=== PATIENT | female | born 1985 | race Caucasian/White ===

== ENCOUNTER 2019-10-27 11:20 | Outpatient (CLI) | payer OTHER, SELFPAY ==
--- NOTE | ~2019-10-27 | MMUS_ITS ---
EXAMINATION: MM diagnostic tierney BI w poncho, US breast BI limited HISTORY: Family history of breast cancer in her mother at age 30 TECHNIQUE: Craniocaudal, mediolateral, and mediolateral oblique 3-D tomosynthesis images of the breas ts were performed and synthetic 2-D images were generated. Spot compression views are also obtained. CAD analysis was submitted and interpreted. High resolution limited bilateral breast ultrasound was p erformed. COMPARISON: None, baseline BREAST PARENCHYMAL COMPOSITION: There are scattered areas of fibroglandular density. FINDINGS: MAMMOGRAPHIC FINDINGS: Right breast: There is focal asymmetry in the posterior third of the upper outer quadrant of the yosi st approximately 10 cm from the nipple. No suspicious calcification is identified. Left breast: An asymmetry is present in the middle third of the central breast. There is no suspiciou s calcification or architectural distortion. ULTRASOUND: No suspicious sonographic correlate is identified for the mammographic finding in either breast. Dens e breast tissue is seen bilaterally. There is an 8 mm cyst in the left breast at the 2:00 location 7 cm from the nipple. IMPRESSION: 1. No mammographic or sonographic evidence of malignancy. 2. Recommend routine screening mammography in one year given patient's family history of breast cance r in her mother at age 30. BI-RADS Category 2: Benign finding(s). Reviewed, dictated and finalized at location A. IMPRESSION: 1. No mammographic or sonographic evidence of malignancy. 2. Recommend routine screening mammography in one year given patient's family h istory of breast cancer in her mother at age 30. BI-RADS Category 2: Benign finding(s).
== END 2019-10-27 11:21 | disposition home or self-care (01) ==
LOC: ANHIMG 11:21
PROVIDERS: PCP Family Medicine; Visit Provider Obstetrics & Gynecology
DX: N60.19 Diffuse cystic mastopathy of unspecified breast (principal); Z80.3 Family history of malignant neoplasm of breast
CPT/HCPCS: 76642; 77062; 77066; G0279

== ENCOUNTER 2020-05-23 11:08 | Outpatient (CLI) | payer OTHER, SELFPAY ==
--- NOTE | ~2020-05-23 | US_ITS ---
EXAMINATION: US breast RT limited HISTORY: Right nipple discharge TECHNIQUE: Limited ultrasound was performed of the subareolar aspect of the right breast. FINDINGS: Ducts in the subareolar aspect of the breasts contain a small amount of fluid. No intraduct al mass is identified. IMPRESSION: No specific sonographic correlate is identified for the reported nipple discharge. Further evaluation at this time should be based on clinical assessment. Continued follow-up physical examination is rec ommended. BI-RADS Category 1: Negative Reviewed, dictated and finalized at location A. IMPRESSION: No specific sonographic correlate is identified for the reported nipple dischar ge. Further evaluation at this time should be based on clinical assessment. Con tinued follow-up physical examination is recommended. BI-RADS Category 1: Negative
== END 2020-05-23 11:09 | disposition home or self-care (01) ==
LOC: ANHIMG 11:14
PROVIDERS: PCP Family Medicine; Visit Provider Obstetrics & Gynecology
DX: N64.52 Nipple discharge (principal)
CPT/HCPCS: 76642

== ENCOUNTER 2020-06-13 11:03 | Outpatient (CLI) | payer OTHER, SELFPAY ==
--- NOTE | ~2020-06-13 | US_ITS ---
EXAMINATION: US pelvic complete w TV EXAM DATE: 06/13/2020 11:54 INDICATION: R10.2 - Pelvic and perineal pain. TECHNIQUE: Pelvic transabdominal and transvaginal sonogram was performed. There are multiple graysca le and Doppler images available for interpretation. There is no prior study for comparison. FINDINGS: Uterus measures 8.1 x 3.3 x 4.3 cm, with trace fluid in the endometrial canal. Endometrial stripe measures 5 mm, within normal limits. There is no free pelvic fluid. Right adnexa: The ovary measures 7.1 x 6.7 x 7.2 cm, with an anechoic simple cystic region taking up most of this volume at 6.0 x 6.1 x 6.5 cm. Ovarian vascular flow confirmed. Left adnexa: The ovary measures 3.7 x 2.0 x 2.1 cm and is morphologically normal. Ovarian vascular fl ow confirmed. IMPRESSION: Large right adnexal cystic lesion, could be large physiologic cyst given no complexity bu t differential diagnosis includes hemorrhagic cyst, endometrioma or cystic ovarian neoplasm. No torsi on. Recommend 6 week follow-up pelvic sonogram. Reviewed, dictated and finalized at location A. Y LAB TECHNICIAN IMPRESSION: Large right adnexal cystic lesion, could be large physiologic cyst given no complexity but differential diagnosis includes hemorrhagic cyst, endom etrioma or cystic ovarian neoplasm. No torsion. Recommend 6 week follow-up pelv ic sonogram.
== END 2020-06-13 11:04 | disposition home or self-care (01) ==
PROVIDERS: PCP Family Medicine; Visit Provider Obstetrics & Gynecology
DX: R10.2 Pelvic and perineal pain (principal); N83.201 Unspecified ovarian cyst, right side
CPT/HCPCS: 76830; 76856

== ENCOUNTER 2021-05-10 07:41 | Outpatient (RCR) | payer OTHER, SELFPAY ==
[2021-05-10] MEDS: ACETAMINOPHEN 325 MG TABLET 650 MG PO (11:12)
[2021-05-10] MEDS: diphenhydrAMINE HCl CAP 25 MG CAPSULE PO (11:13)
[2021-05-10] MEDS: FAMOTIDINE 20 MG TABLET PO (11:13)
[2021-05-10 11:21] VITALS: BP 135/87; PULSE 78; RESP 18; TEMP 37; O2SAT 100
[2021-05-10 12:39] VITALS: BP 120/61
--- NOTE | 2021-05-13 12:53 | PC.NURSE ---
Patient states she felt much better the day after her monoclonal antibody infusion.
== END 2021-05-10 14:26 | disposition home or self-care (01) ==
LOC: AMCINF 07:41
PROVIDERS: PCP Internal Medicine; Referring Provider Nurse Practitioner Family; Visit Provider Internal Medicine Hematology & Oncology
DX: Z23 Encounter for immunization (principal); U07.1 COVID-19
CPT/HCPCS: A9270; J7050; M0243; Q0243

== ENCOUNTER → 2021-09-16 00:50 | Outpatient (CLI) | payer OTHER, SELFPAY ==
[2021-09-16 11:41] LABS: SARS-CoV-2 RNA PCR Negative
== END ==
PROVIDERS: PCP Internal Medicine; Visit Provider Surgery Plastic and Reconstructive Surgery
DX: Z01.812 Encounter for preprocedural laboratory examination (principal); Z20.822 Contact with and (suspected) exposure to COVID-19
CPT/HCPCS: C9803; U0003; U0005

== ENCOUNTER 2021-09-16 09:22 | Outpatient (CLI) | payer OTHER, SELFPAY ==
--- NOTE | 2021-09-16 09:25 | ECG_ITS ---
Measurements Intervals [place] Rate: 94 P: 66 [place]: 138 QRS: 71 QRSD: 85 T: 56 QT: 343 QTc: 431 Interpretive Statements SINUS RHYTHM WITH SINUS ARRHYTHMIA LOW QRS VOLTAGE IN PRECORDIAL LEADS BASELINE ARTIFACT- I, II, AVR, AVL, AVF, V1 BORDERLINE ECG Electronically Signed On 09-16-2021 13:04:16 KRAFT DIGESTER OPERATOR by Sukumar Sherman D.O.
[2021-09-16 09:52] LABS: Hematocrit 39.1 % (37.0-47.0); Hemoglobin 13.5 g/dL (12.0-15.0)
== END 2021-09-16 09:23 | disposition home or self-care (01) ==
LOC: ANHSURGERY 09:25
PROVIDERS: Anesthesiology; PCP Internal Medicine; Visit Provider Surgery Plastic and Reconstructive Surgery
DX: Z41.1 Encounter for cosmetic surgery (principal); R94.31 Abnormal electrocardiogram [ECG] [EKG]
CPT/HCPCS: 36415; 85014; 85018; 93005

== ENCOUNTER 2021-09-19 | Day surgery (SDC) | payer OTHER, SELFPAY ==
[2021-09-11 13:06] VITALS: BMI 24.7
--- NOTE | 2021-09-11 13:27 | PC.NURSE ---
Report to the Outpatient Waiting Room, entrance under the green pavilion located off [facility], at time 6:00 on date 09/19/21. OR Time: 7:30. - You and your visitor will be asked a series of questions to screen for COVID 19 for your protection. - A mask is required within the hospital. One visitor will be allowed to accompany the patient into the hospital. Patients visitor will be instructed to remain with patient at all times or leave the building. We will allow the visitor to come back to the postoperative area when patient is ready. Preoperative COVID Testing Requirements: COVID TEST 09/16 AT 9:30 No COVID Test needed if: (proof is required; if not received patient will have Rapid Test prior to entry) - Patient has received COVID Vaccine at least 14 days prior to procedure date or - Patient has positive COVID test result within last 90 days of surgery date. COVID Test needed if above criteria is not met If not COVID vaccinated a COVID test must be conducted within 72 hours of surgery and patient is asked to isolate self from time of testing until procedure. You will go to the [employer] [facility] for your COVID testing. The [employer] [facility] site is located at the corner of [address] [facility]. You will only be called if COVID results are positive and your surgeon may reschedule your elective surgery date. Patients may have clear liquids (water, carbonated beverages, clear teas, apple juice) until 3 hours prior to surgery (4:30) with a maximum of 20 ounces. - No food from midnight until time of surgery Take the following medications with a SIP of water the morning of surgery: XANAX & TRAMADOL (IF NEEDED) Medications to discontinue per physician: VITAMINS/SUPPLEMENTS Date to take last dose: 09/15/21 Please no make-up, nail [place], hairspray, perfume, deodorant, or body powder the day of surgery. No jewelry (including any body piercings) or valuables the day of surgery, leave them at home. Please take a shower or bath the night before, or the morning of, surgery with an antibacterial soap. Wear comfortable, loose fitting clothing. - Jewelry must be removed prior to entering the operating room. Rings and piercings that are not removed may be cut off. - The hospital will not accept responsibility for valuables. - Please leave all valuables, including medications, at home the day of surgery. If you are going home after surgery, a licensed flatbed company driver must drive you home. - NO public transportation without another adult. - We recommend that an adult stay with you for 24 hours following discharge. - We also recommend that you do not drive, make important decision, drink alcoholic beverages, or take any drugs that were not prescribed by your health care provider for at least 24 hours after your discharge time. Follow any additional instructions given to you from your surgeon. Telephone instructions given to SUPA GARAY and asked if any additional questions and then verbalized understanding. Patient advised to call surgeon office or pre surgery nurse liaison [phone] if any additional questions.
--- NOTE | 2021-09-18 13:38 | WPDANESEPPF ---
Anes - Initial Pre Proc Eval Procedure: Operation Date: 09/19/21 07:30 Proposed Procedures p Abdominoplasty - Chris Pearce MD s Bilateral Mastopexy with Galaflex - Chris Pearce MD Date/Time: 09/18/21 13:38 Surgeon: Chris Pearce MD Pre Op Diagnosis: Skin Laxity, Bilateral Breast Ptosis Patient Data Age: 35 Gender: F Height: 1.6 m Weight: 63.5 kg Allergies Allergy/AdvReac Type Severity Reaction Status Date / Time Penicillins Allergy Mild RASH Verified 09/11/21 13:03 CHILD amoxicillin Allergy Unknown Rash Verified 09/11/21 13:03 cinnamon AdvReac Unknown Itching Verified 09/11/21 13:03 Home Medications Medication Instructions Recorded Confirmed Type linaclotide 145 mcg capsule 145 mcg PO DAILY PRN 09/22/19 09/11/21 History alprazolam [Xanax] 1 mg PO HS PRN 05/10/21 09/11/21 History tramadol 50 mg PO Q6H PRN 05/10/21 09/11/21 History zolpidem [Ambien] 5 mg PO HS PRN 05/10/21 09/11/21 History ondansetron 4 mg disintegrating 4 mg PO Q8H #21 tablet 09/04/21 09/11/21 Rx tablet oxycodone-acetaminophen 5 mg-325 1 tablet PO Q6H PRN #30 tablet 09/05/21 09/11/21 Rx mg tablet dextroamphetamine-amphetamine 10 mg PO DAILY 09/11/21 09/11/21 History multivitamin 1 tablet PO DAILY 09/11/21 09/11/21 History omega-3 fatty acids-vitamin E 1 cap PO DAILY 09/11/21 09/11/21 History [Fish Oil] Patient hx anesthesia problems: none Family hx anesthesia problems: none Results Review: All pre-operative results and documents have been reviewed as part of the pre-operative evaluation. [facility] Past Medical History Medical History Congenital hip dysplasia Prudence-Danlos syndrome Gallstones Sacroiliac joint disease Vaginal delivery x 2 Surgical History Surgical History History of endometrial ablation History of tubal ligation S/P cholecystectomy Family History Family History Father Hypertension Mother Hypertension Family history of malignant neoplasm of breast in first degree relative Grandparent Family history of elevated blood lipids Carcinoma of colon Family history of coronary artery disease Diabetes mellitus Other Family history of allergic disorder Social History Social History Smoking packs per day: 0.5 Smoking cigarettes per day: 10.0 Years smoked: 17 Smoking pack-years: 8.50 Smoking status: Never smoker Tobacco type: cigarettes and e-cigarettes/vaping Second hand tobacco smoke exposure: No Smoking end date: 07/27/11 Alcohol intake: current Alcohol use details: RARE Substance use: current Substance use type: marijuana Living arrangements: with family Spiritual care concerns: No Anes - Eval Final PreProcedure Day of Procedure 09/18/21 13:38 Patient weight: normal Heart: regular rate and rhythm Lungs: clear to auscultation Airway: Mallampati scale class II Neurological: alert and oriented Last oral intake: >/= 8 hours ASA classification: II Emergent: no Anesthetic plan: proceed Anesthesia type and monitoring: general ETT and standard monitoring Results Review: All pre-operative results and documents have been reviewed as part of the pre-operative evaluation. Informed Consent: The patient's anesthetic plan and its attendant risks and benefits were discussed with the patient/family/POA. Questions were solicited and answers provided to the satisfaction of the patient/family/POA.
[2021-09-19] VITALS (10 sets, daily range): BP systolic 96–135; BP diastolic 52–89; PULSE 76–108; RESP 12–20; TEMP 36.6–37.5; O2SAT 96–100
[2021-09-19] MEDS: LACTATED RINGERS 1,000 ML 30 ML IV CONT ×2 (06:50→12:47)
[2021-09-19] MEDS: TRANEXAMIC ACID 1,000MG/ISO100 1,000 MG/100 ML BAG 200 MG IVPB (06:55)
[2021-09-19 07:13] LABS: Urine Cotinine NEGATIVE
--- NOTE | 2021-09-19 07:27 | WPDHPUPDATE1 ---
History and Physical Update Update Date/Time: 09/19/21 07:27 History and Physical has been reviewed, including an updated exam of the patient. There are NO changes in the patient's condition. Risks, benefits, and alternatives have been discussed and questions answered. Patient agrees to proceed with procedure.
--- NOTE | 2021-09-19 07:27 | W.PM.PROC2 ---
Procedure Note - Detailed Date of Procedure 09/19/21 Pre-op Diagnosis Skin Laxity, Bilateral Breast Ptosis Post-op Diagnosis same Procedure Performed 1. Bilateral mastopexy with Galaflex 2. Progressive tension abdominoplasty Surgeon Chris Pearce MD Anesthesia general Findings Inverted T, superior medial pedicle mastopexy with autoaugmentation Abdominal tissue removed: 1194.6 grams Galaflex REF# [id number] Description of Procedure They are here today for the above. Previously and again today the risks, benefits, alternatives were discussed in extensive detail. I wanted them to be very realistic about the risks involved as well as expectations. We discussed aftercare and what to monitor for. I was very upfront about the risks of wound breakdown leading to loss of skin, open wounds, and need for additional procedures with permanent abdominal deformity. We discussed DVT/PE risks and management. Made sure answered all of their questions to their satisfaction today and consent was obtained. They were marked in the preoperative holding area with their verification. The patient was taken to the operating room placed supine on the operating table. Anesthesia was provided by anesthesiology. A Altamirano catheter was started. They were prepped and draped in a standard sterile fashion. A surgical time-out was taken. Breast Stab incisions were made night and infiltrated with a small volume of tumescent solution. Tailor tacked the breast into position placed her in a sitting position to verify markings. Markings were based on preoperative planning, intraoperative observation and measurements which were all in full agreement. I marked out the nipple-areolar complex at 42 mm. She is placed supine. I de-epithelialized the superior medial pedicle. I then de-epithelialized the inferior portion of the breast. Incisions were made along the planned incision lines and I elevated the breast in order to create an auto augmentation flap. Once this was completed I copiously irrigated with saline solution and verified strict hemostasis. Auto add mentation flap was sutured to the chest wall using 2-0 PDS. On the back table the Galaflex had been soaking on Betadine solution. I trimmed as necessary and sutured to provide inferior pole support bilateral with 2-0 Vicryl. I then closed along the IMF with 2-0 Stratafix as well as 2-0 PDS along the vertical. Around the areola I used 3-0 strata fix as well as along the IMF. I used 3-0 Monocryl along the vertical. Final closure was running subcuticular 4-0 Monocryl and Steri-Strips. Abdomen I placed the patient in a flexed position to verify the upper and lower markings would reach. I then placed supine. A thorough abdominal examination was completed. Stab incisions were made and tumescent solution infiltrated. A liposuction basket cannula was utilized to provide discontinuous undermining. A 10 blade was used to make the upper incision. I continued dissection down to the level of fascia. Elevated just what was necessary for repair of the diastasis. I then again flexed the bed to verify the upper skin flap would reach the lower markings without tension. Once verified I placed her supine once again and a 10 blade used to make the lower incision. I elevated up to level the umbilicus and left the umbilicus intact on a well-vascularized stalk. The intervening tissue was removed. A 2 mm blunt cannula with 0.5% bupivicaine was injected deep to the fascia bilaterally. I plicated the diastasis recti using 0 PDO stratafix barbed suture. This was in 2 separate layers using 2 separate sutures as well. I repaired around the umbilicus leaving plenty of room for well-vascularized stalk of the umbilicus with 2-0 PDS. I also repaired lateral to the rectus using two layers of 0 PDO stratafix. The patient was flexed and starting from superior to inferior began plication using 2-0 Vicryl to obliterat
[2021-09-19] MEDS: ceFAZolin 2 GM/D5W 50 ML 2 GM/50 ML BAG IVPB (07:36)
[2021-09-19] MEDS: LACTATED RINGERS IRRIG 1,000 ML, LIDOCAINE HCL 1% LOCAL INJ 50 ML, EPINEPHrine HCL INJ ... INFILTRATE (08:11)
--- NOTE | 2021-09-19 09:20 | SUR.OPER ---
GalaFLEX Scaffold lot [id number], Exp 2023-04-25, REF [id number]. Soaked in pharmacy antibiotic solution prior to bilateral breast insertion on sterile field.See [facility] for antibiotic mix/Bottle 1000ml lot [id number], exp [id number], ARLINE FLETCHER [facility] 3881-1148-47.
[2021-09-19] MEDS: BUPIVACAINE/EPINEPHRINE 0.5% 30 ML VIAL 60 ML INFILTRATE (10:47)
--- NOTE | 2021-09-19 10:48 | SUR.OPER ---
patients positioning maintained.
[2021-09-19] MEDS: ceFAZolin SODIUM 1 GM VIAL IV PUSH (11:32)
--- NOTE | 2021-09-19 11:43 | SUR.OPER ---
tumescent 276ml bilateral breasts. abdomen 626ml.
[2021-09-19] MEDS: fentaNYL CITRATE INJ (*CRX) 100 MCG/2 ML VIAL 25 MCG IV PUSH ×6 (12:56→13:53)
[2021-09-19] MEDS: ONDANSETRON INJ 4 MG/2 ML VIAL IV PUSH (13:23)
[2021-09-19] MEDS: LACTATED RINGERS 1,000 ML 125 ML IV CONT (14:25)
[2021-09-19] MEDS: MORPHINE SULFATE (*CRX) 2 MG/ML INJ IV PUSH ×3 (14:44→20:50)
[2021-09-19] MEDS: ALPRAZolam (*CRX) 0.5 MG TABLET 1 MG PO (15:28)
[2021-09-19] MEDS: carisoprodoL (*CRX) 350 MG TABLET PO ×2 (15:28→21:36)
[2021-09-19] MEDS: oxyCODONE/ACETAMINOPHEN (*CRX) 5-325 MG TABLET PO ×2 (16:38→22:52)
[2021-09-19] MEDS: SIMETHICONE 80 MG TAB.CHEW PO ×4 (16:38→22:52)
[2021-09-19] MEDS: ENOXAPARIN 40 MG/0.4 ML SYRINGE SUB-Q (18:39)
[2021-09-19] MEDS: IBUPROFEN 600 MG TABLET PO (18:46)
[2021-09-20] MEDS: MORPHINE SULFATE (*CRX) 2 MG/ML INJ IV PUSH ×2 (00:28→02:31)
[2021-09-20] MEDS: IBUPROFEN 600 MG TABLET PO ×2 (02:20→10:36)
[2021-09-20] MEDS: SIMETHICONE 80 MG TAB.CHEW PO ×3 (02:20→08:59)
[2021-09-20 03:30] VITALS: BP 96/58; PULSE 97; RESP 16; TEMP 37.1; O2SAT 98
[2021-09-20] MEDS: carisoprodoL (*CRX) 350 MG TABLET PO ×2 (03:41→08:58)
[2021-09-20] MEDS: oxyCODONE/ACETAMINOPHEN (*CRX) 5-325 MG TABLET PO ×2 (04:52→10:36)
[2021-09-20 07:15] VITALS: BP 84/53; PULSE 104; RESP 16; TEMP 37.2; O2SAT 97
--- NOTE | 2021-09-20 07:24 | WPDHPUPDATE1 ---
History and Physical Update Update Date/Time: 09/20/21 07:24 History and Physical has been reviewed, including an updated exam of the patient. There are NO changes in the patient's condition. Risks, benefits, and alternatives have been discussed and questions answered. Patient agrees to proceed with procedure.
--- NOTE | 2021-09-20 07:49 | WPDPN ---
Progress Note: A&P Assessment and Plan (1) Breast ptosis: Code(s): N64.81 - Ptosis of breast Status: Acute Assessment and Plan: Doing well after bilateral mastopexy with galaflex and progressive tension abdominoplasty. Will discharge home. F/U. She is going to monitor for BM and keep us updated. Today we had a lengthy discussion about care. Activity limiations. What to monitor for. She will call with any questions or concerns. For SOB / Chest pain / Medical emergency proceed ER / dial 911. (2) Skin laxity: Code(s): L57.4 - Cutis laxa senilis Status: Acute (3) Prudence-Danlos syndrome: Code(s): Q79.60 - Prudence-Danlos syndrome, unspecified Status: Acute (4) Chronic constipation: Code(s): K59.09 - Other constipation Status: Acute Subjective Date/time seen: 09/20/21 07:15 Doing very well. Pain control much improved. No f/c. No n/v. No CP / SOB. She has chronic constipation. No BM last couple days. Review of Systems Review of Systems: All systems reviewed & are unremarkable except as noted in HPI and below Exam Narrative: A&O NOD Resp unlabored Bilateral breast healing well. No signs of infection. No heomataom. No seroma. Good color / cap refill. Abdomen healing well. No signs of infection. No heomataom. No seroma. Good color / cap refill. No calf tenderness. Negative Homann's. Objective Data Vital Signs Vital Signs: Vital Signs - 24 hr 09/19/21 12:55 09/19/21 13:10 09/19/21 13:25 Temperature 36.6 C Pulse Rate 106 H 106 H 99 Respiratory Rate 12 20 12 Blood Pressure 123/75 117/81 115/80 Pulse Oximetry 100 100 96 09/19/21 13:40 09/19/21 13:55 09/19/21 14:20 Temperature 36.8 C Pulse Rate 100 108 H 107 H Respiratory Rate 12 20 18 Blood Pressure 132/83 135/83 134/89 Pulse Oximetry 96 100 99 09/19/21 16:38 09/19/21 19:00 09/19/21 23:00 Temperature 37.5 C 37.3 C Pulse Rate 76 98 97 Respiratory Rate 16 16 16 Blood Pressure 117/69 111/68 96/52 L Pulse Oximetry 98 98 98 09/20/21 03:30 Temperature 37.1 C Pulse Rate 97 Respiratory Rate 16 Blood Pressure 96/58 L Pulse Oximetry 98 Intake/Output Intake/Output: Intake & Output 09/17/21 09/18/21 09/19/21 09/20/21 23:59 23:59 23:59 23:59 Intake Total 2850 Output Total 2100 550 Balance 750 -550 Meds/Results Medications: Active Medications Generic Name Dose Route Start Last Admin Trade Name Freq PRN Reason Stop Dose Admin Alprazolam 1 mg 09/19/21 15:24 09/19/21 15:28 Alprazolam (*Crx) 0.5 Mg Tablet PO 1 mg TID PRN Administration Anxiety Carisoprodol 350 mg 09/19/21 18:00 09/20/21 03:41 Carisoprodol (*Crx) 350 Mg Tablet PO 350 mg Q6HR BEVERLEY Administration Docusate Sodium 100 mg 09/19/21 21:00 09/19/21 21:23 Docusate Sodium 100 Mg Capsule PO Not Given Q12HR BEVERLEY Enoxaparin Sodium 40 mg 09/19/21 19:00 09/19/21 18:39 Enoxaparin 40 Mg/0.4 Ml Syringe SUB-Q 40 mg DAILY BEVERLEY Administration Lactated Ringer's 1,000 mls @ 125 mls/hr 09/19/21 12:35 09/20/21 05:03 Lr - Lactated Ringers Iv IV CONT Not Given .Q8H BEVERLEY Ibuprofen 600 mg 09/19/21 16:11 09/20/21 02:20 Ibuprofen 600 Mg Tablet PO 600 mg Q8H PRN Administration Cramping Linaclotide 145 mcg 09/19/21 14:13 Linaclotide 145 Mcg Capsule PO DAILY PRN Constipation Morphine Sulfate 2 mg 09/19/21 12:31 09/20/21 02:31 Morphine Sulfate (*Crx) 2 Mg/Ml Inj IV PUSH 2 mg Q2H PRN Administration Pain Ondansetron HCl 4 mg 09/19/21 12:31 Ondansetron Inj 4 Mg/2 Ml Vial IV PUSH Q6H PRN Nausea Oxycodone/Acetaminophen 1 - 2 tablet 09/19/21 12:31 09/20/21 04:52 Oxycodone/Acetaminophen (*Crx) 5-325 Mg Tablet PO 2 tablet Q6H PRN Administration Pain Simethicone 80 mg 09/19/21 16:09 09/20/21 04:52 Simethicone 80 Mg Tab.Chew PO 80 mg Q2HR PRN Administration Gas Discomfort
--- NOTE | 2021-09-20 07:53 | PM.DS ---
DS: Admitting Diagnosis Discharge Date 09/20/2021 Admitting Diagnosis Breast ptosis Skin laxity Chronic constipation DS: Discharge Diagnosis Discharge Diagnosis (1) Breast ptosis: Code(s): N64.81 - Ptosis of breast Status: Acute (2) Skin laxity: Code(s): L57.4 - Cutis laxa senilis Status: Acute (3) Chronic constipation: Code(s): K59.09 - Other constipation Status: Acute (4) Prudence-Danlos syndrome: Code(s): Q79.60 - Prudence-Danlos syndrome, unspecified Status: Acute DS: Summary Hospital Course Hospital Course: Doing well after bilateral mastopexy with galaflex and progressive tension abdominoplasty. Will discharge home. F/U. She is going to monitor for BM and keep us updated. Time Spent with Patient Time attestation: Total time spent providing and/or coordinating discharge services: Exam Narrative: A&O NOD Resp unlabored Bilateral breast healing well. No signs of infection. No heomataom. No seroma. Good color / cap refill. Abdomen healing well. No signs of infection. No heomataom. No seroma. Good color / cap refill. No calf tenderness. Negative Homann's. Discharge Plan Discharge Patient Disposition: Home, Self-Care Discharge Instructions: POST OPERATIVE DISCHARGE INSTRUCTIONS CHRIS PEARCE M.D. [facility] [address] [place] [address] [address] for 24 hours after anesthesia and while you are taking pain medication. Take all prescribed medication as directed Diet as tolerated. Begin gentle shoulder rolls and arm stretches 10 times per hour. No lifting or activity that raises blood pressure for 48 hours. Regular walking / ambulation. No showering until directed to. No pools or tubs for 2 weeks. Call with any questions or concerns. May shower. Do not take pain medication before showering as the combination of medication and heat may cause you to feel dizzy or pass out. Let soap and water run over your incisions. Do not scrub or directly wash your incision. No straining or lifting more than 20 pounds for 6 weeks. Slowly stand up straight as tolerated over the week. Continue surgical bra (no underwire) and abdominal binder 23 hours per day. If no bowel movement within 24 hours please let us know. If you have any questions or concerns, please call the office . If it is after hours you will be directed to the cushion padder exchange. Shortness of breath, chest pain, or other medical emergency dial 911 / proceed to the Emergency Room. Stand Alone Forms: General Discharge Instructions Follow-up/Referrals: Chris Pearce MD [Physician] - 1 Week Discharge Medications: Continued alprazolam [Xanax] 1 mg Tablet 1 mg PO HS PRN (Reason: anxiety) RF: 0 tramadol 50 mg Tablet 50 mg PO Q6H PRN (Reason: pain) RF: 0 zolpidem [Ambien] 5 mg Tablet 5 mg PO HS PRN (Reason: anxiety) RF: 0 ondansetron 4 mg tablet,disintegrating 4 mg PO Q8H Qty: 21 RF: 0 oxycodone-acetaminophen [Percocet] 5-325 mg tablet 1 tablet PO Q6H PRN (Reason: pain) Qty: 30 RF: 0 Linzess 145 mcg capsule 145 mcg PO DAILY PRN (Reason: Constipation) RF: 0 dextroamphetamine-amphetamine 10 mg tablet 10 mg PO DAILY RF: 0 multivitamin Tablet 1 tablet PO DAILY RF: 0 omega-3 fatty acids-vitamin E 1,000 mg Capsule 1 cap PO DAILY RF: 0
[2021-09-20] MEDS: DOCUSATE SODIUM 100 MG CAPSULE PO (08:58)
[2021-09-20] MEDS: ALPRAZolam (*CRX) 0.5 MG TABLET 1 MG PO (08:59)
== END 2021-09-20 11:45 | disposition home or self-care (01) ==
LOC: ANHSURGERY 12:31 → ANHOB2 13:51
PROVIDERS: PCP Internal Medicine; Visit Provider Surgery Plastic and Reconstructive Surgery
PROC: (CPT 19316; principal; 2021-09-19 07:30)
PROC: (CPT 19316; 2021-09-19 07:30)
DX: Z41.1 Encounter for cosmetic surgery (principal); N64.81 Ptosis of breast; L57.4 Cutis laxa senilis; K59.09 Other constipation; Q79.60 Ehlers-Danlos syndrome, unspecified; Q65.89 Other specified congenital deformities of hip; Z87.891 Personal history of nicotine dependence; F12.90 Cannabis use, unspecified, uncomplicated; Z79.899 Other long term (current) drug therapy
CPT/HCPCS: 19316; 15777 ×2; 15830; 15847; 80307; 99199; A9270; J0171; J0690; J1100; J1170; J1580; J1650; J2250; J2270; J2405; J2704; J3010; J7120

== ENCOUNTER 2022-01-31 10:57 | Outpatient (CLI) | payer OTHER, SELFPAY ==
--- NOTE | ~2022-01-31 | US_ITS ---
EXAMINATION: US pelvic complete w TV DATE: 01/31/2022 12:03 INDICATION: Ovarian cyst, unspecified TECHNIQUE: Multiple transabdominal and endovaginal sonographic images of the pelvis were obtained. COMPARISON: 06/13/2020 FINDINGS: The uterus measures 8.4 x 3.6 x 4.2 cm. A nabothian cysts are noted in the cervix. The endo metrial complex measures 7 mm. The right ovary measures 7.7 x 6.5 x 8.5 cm. There is a 7.8 x 6.0 cm s imple cyst of the right ovary which previously measured 6.5 x 6.1 cm. No internal nodularity is ident ified. The left ovary measures 4.7 x 2.7 x 2.6 cm. There is normal vascular flow in the ovaries. Ther e is no free fluid in the pelvis. IMPRESSION: 1. Simple right ovarian cyst with slight increase in size. Reviewed, dictated and finalized at location B.
== END 2022-01-31 10:58 | disposition home or self-care (01) ==
PROVIDERS: PCP Internal Medicine; Visit Provider Obstetrics & Gynecology
DX: N83.201 Unspecified ovarian cyst, right side (principal)
CPT/HCPCS: 76830; 76856

== ENCOUNTER 2022-03-20 12:31 | Outpatient (CLI) | payer OTHER, SELFPAY | END 2022-03-20 12:32 | disposition home or self-care (01) | LOC: ANHSURGERY 12:34 | PROVIDERS: PCP Internal Medicine; Visit Provider Obstetrics & Gynecology | DX: N94.9 Unspecified condition associated with female genital organs and menstrual cycle (principal); Z01.818 Encounter for other preprocedural examination | CPT/HCPCS: 36415; 86850; 86900; 86901 ==

== ENCOUNTER 2022-03-26 01:10 | Day surgery (SDC) | payer OTHER, SELFPAY ==
[2022-03-18 10:03] VITALS: BMI 25.7
--- NOTE | 2022-03-18 10:31 | PC.NURSE ---
Report to the Outpatient Waiting Room, entrance under the green pavilion located off [facility], at 0600 on 03-26-2022. OR Time: 0730. - You and your visitor will be asked to self-screen and do not enter if you have any COVID symptoms. - Only one visitor and NO children visitors are allowed at this time. - The patient visitor is requested to leave or wait in car when not with patient due to restrictions. - A mask is required within the hospital. Patients may have clear liquids (water, carbonated beverages, clear teas, apple juice) until 3 hours prior to surgery with a maximum of 20 ounces. 0430 - No food from midnight until time of surgery - Infants may have breast milk until 4 hours before surgery, infant formula 6 hours prior to surgery. - Children will be allowed to drink immediately following surgery. If applicable, please bring a bottle or sippy cup to assist with drinking. Juice, water, soda, and popsicles are readily available. For infants on formula, please bring formula the day of surgery. Pacifiers are allowed. Take the following medications with a SIP of water the morning of surgery: dextroamphetamine-amphetamine Medications to discontinue per physician: Vitamins and supplements; ibuprofen Date to take last dose: 03-23-22; per Dr. Alexander Please no make-up, nail serbian, hairspray, perfume, deodorant, or body powder the day of surgery. No jewelry (including any body piercings) or valuables the day of surgery, leave them at home. Please take a shower or bath the night before, or the morning of, surgery with an antibacterial soap. Wear comfortable, loose fitting clothing. Children are encouraged to wear pajamas. - Jewelry must be removed prior to entering the operating room. Rings and piercings that are not removed may be cut off. - The hospital will not accept responsibility for valuables. - Please leave all valuables, including medications, at home the day of surgery. If you are going home after surgery, a licensed cdl a driver must drive you home. - NO public transportation without another adult. - We recommend that an adult stay with you for 24 hours following discharge. - We also recommend that you do not drive, make important decision, drink alcoholic beverages, or take any drugs that were not prescribed by your health care provider for at least 24 hours after your discharge time. For Pediatric surgeries, we recommend two adults accompany the child home (only one inside the building at this time). Follow any additional instructions given to you from your surgeon. If you or anyone in your household have experienced Covid symptoms in the past week, please notify your surgeon or the nurse liaison at the phone number below for possible testing. Telephone instructions given to Carolyn Perez and asked if any additional questions and then verbalized understanding. Patient advised to call surgeon office or pre surgery nurse liaison [phone] if any additional questions.
--- NOTE | 2022-03-25 13:17 | PM.IMHP ---
H&P: HPI History of Present Illness Date/Time: 03/25/22 13:17 Chief Complaint: pelvic pain Narrative: She had had a cyst on right side for over a year and did not get follow up. She gets occasional pain on right There is a 7.8 x 6.0 cm simple cyst of the right ovary which previously measured 6.5 x 6.1 cm. No internal nodularity is identified. She has intermittent lower abdominal pain. No dysparenia. She has been recommended for removal of the cyst. She has had a normal Ca125. She has had a prior tubal ligation with fulgaration. Discussed benefit of possible decreasing lifetime risk of ovarian cancer with bilateral salpingectomy. She does want the bilateral salpingectomy also. Discussed risk benefit and alternatives to surgery and risk of not removing the cyst. Understands if right ovary needs to be removed then she should not go into menopause any sooner with the remaining ovary intact. The cyst appears benign but cannot make certain without tissue. Discussed risk benefit of robotic laparoscopy and risk of not removing the cyst. Questions answered consent signed. Review of Systems Review of Systems: All systems reviewed & are unremarkable except as noted in HPI and below Constitutional: Constitutional: Reports no additional constitutional complaints Eyes: Eyes: Reports no additional eye complaints Cardiovascular: Cardiovascular: Reports no additional cardiovascular complaints Respiratory: Respiratory: Reports no additional respiratory complaints Gastrointestinal: Gastrointestinal: Reports no additional gastrointestinal complaints Genitourinary: Genitourinary: Reports no additional female genitourinary complaints and Reports as per HPI Integumentary/Breasts: Skin/Breast: Reports system reviewed and no additional complaints, except as docu Neurologic: Reports system reviewed and no additional complaints, except as documented Psychiatric: Psychiatric: Reports no additional psychiatric complaints Hematologic/Lymphatic: Hematologic/Lymphatic: Reports no additional hematologic/lymphatic complaints [facility] Past Medical History Medical History ASCUS of cervix with negative high risk HPV BMI 25.0-25.9,adult Congenital hip dysplasia Prudence-Danlos syndrome Gallstones Sacroiliac joint disease Vaginal delivery x 2 Surgical History Surgical History History of breast lift History of endometrial ablation History of tubal ligation S/P abdominoplasty S/P cholecystectomy Family History Family History Father Hypertension Mother Hypertension Family history of malignant neoplasm of breast in first degree relative Skin cancer Grandparent Family history of elevated blood lipids Carcinoma of colon Family history of coronary artery disease Diabetes mellitus Skin cancer Grandma both sides Grandpa dads side Other Family history of allergic disorder Social History Social History Smoking packs per day: 0.5 Smoking cigarettes per day: 10.0 Years smoked: 17 Smoking pack-years: 8.50 Smoking status: Never smoker Tobacco type: cigarettes and e-cigarettes/vaping Second hand tobacco smoke exposure: No Smoking end date: 07/27/11 Alcohol intake: never Alcohol use details: RARE Substance use: current Substance use type: marijuana Other substance usage details: only uses topical form at this time Living arrangements: with family Gender identity (if verbalized by the patient): Female Sexual Orientation (if Verbalized by the Patient): Straight or Heterosexual Spiritual care concerns: No Meds Home Medications and Allergies Home Medications Medication Instructions Recorded Confirmed Type omega-3 fatty acids-vitamin E 1 cap PO HS 09/11/21 03/18/22 History 1,000 m
--- NOTE | 2022-03-25 13:34 | WPDANESEPPF ---
Anes - Initial Pre Proc Eval Procedure: Operation Date: 03/26/22 07:30 Proposed Procedures p Robotic Laparoscopic Removal of Right Adnexal Cyst, Bilateral Salpingectomy, Possible Right Oophorectomy - Inder Alexander MD Date/Time: 03/25/22 13:34 Surgeon: Inder Alexander MD Pre Op Diagnosis: Right adnexal cyst Patient Data Age: 36 Gender: F Height: 1.6 m Weight: 65.77 kg Allergies Allergy/AdvReac Type Severity Reaction Status Date / Time amoxicillin Allergy Unknown Rash Verified 03/18/22 10:28 cinnamon AdvReac Unknown Itching Verified 03/18/22 10:28 Home Medications Medication Instructions Recorded Confirmed Type omega-3 fatty acids-vitamin E 1 cap PO HS 09/11/21 03/18/22 History 1,000 mg capsule alprazolam 1 mg tablet 1 mg PO HS PRN Anxiety 03/18/22 03/18/22 History dextroamphetamine-amphetamine 10 10 mg PO DAILY 03/18/22 03/18/22 History mg tablet ibuprofen 200 mg tablet 400 mg PO Q6H PRN Pain 03/18/22 03/18/22 History spironolactone 50 mg tablet 25 mg PO HS 03/18/22 03/18/22 History zolpidem 10 mg tablet 10 mg PO HS 03/18/22 03/18/22 History Patient hx anesthesia problems: none Family hx anesthesia problems: none Results Review: All pre-operative results and documents have been reviewed as part of the pre-operative evaluation. [facility] Past Medical History Medical History ASCUS of cervix with negative high risk HPV BMI 25.0-25.9,adult Congenital hip dysplasia Prudence-Danlos syndrome Gallstones Sacroiliac joint disease Vaginal delivery x 2 Surgical History Surgical History History of breast lift History of endometrial ablation History of tubal ligation S/P abdominoplasty S/P cholecystectomy Family History Family History Father Hypertension Mother Hypertension Family history of malignant neoplasm of breast in first degree relative Skin cancer Grandparent Family history of elevated blood lipids Carcinoma of colon Family history of coronary artery disease Diabetes mellitus Skin cancer Grandma both sides Grandpa dads side Other Family history of allergic disorder Social History Social History Smoking packs per day: 0.5 Smoking cigarettes per day: 10.0 Years smoked: 17 Smoking pack-years: 8.50 Smoking status: Never smoker Tobacco type: cigarettes and e-cigarettes/vaping Second hand tobacco smoke exposure: No Smoking end date: 07/27/11 Alcohol intake: never Alcohol use details: RARE Substance use: current Substance use type: marijuana Other substance usage details: only uses topical form at this time Living arrangements: with family Gender identity (if verbalized by the patient): Female Sexual Orientation (if Verbalized by the Patient): Straight or Heterosexual Spiritual care concerns: No Anes - Eval Final PreProcedure Day of Procedure 03/25/22 13:34 Patient weight: normal Heart: regular rate and rhythm Lungs: clear to auscultation Airway: Mallampati scale class II Neurological: alert and oriented Last oral intake: >/= 8 hours ASA classification: II Emergent: no Anesthetic plan: proceed Anesthesia type and monitoring: general ETT and standard monitoring Results Review: All pre-operative results and documents have been reviewed as part of the pre-operative evaluation. Informed Consent: The patient's anesthetic plan and its attendant risks and benefits were discussed with the patient/family/POA. Questions were solicited and answers provided to the satisfaction of the patient/family/POA.
[2022-03-26] VITALS (7 sets, daily range): BP systolic 99–117; BP diastolic 51–68; PULSE 75–95; RESP 10–18; TEMP 36.4–37.1; O2SAT 99–100
[2022-03-26] MEDS: LACTATED RINGERS 1,000 ML 30 ML IV CONT ×2 (07:00→09:26)
[2022-03-26] MEDS: ACETAMINOPHEN 500 MG TABLET 1000 MG PO (07:12)
[2022-03-26] MEDS: KETOROLAC 15 MG/ML VIAL (*BKC) IV PUSH (07:13)
--- NOTE | 2022-03-26 07:27 | WPDHPUPDATE1 ---
History and Physical Update Update Date/Time: 03/26/22 07:27 History and Physical has been reviewed, including an updated exam of the patient. There are NO changes in the patient's condition. Risks, benefits, and alternatives have been discussed and questions answered. Patient agrees to proceed with procedure.
--- NOTE | 2022-03-26 09:07 | W.PM.PROC2 ---
Procedure Note - Detailed Date of Procedure 03/26/22 Pre-op Diagnosis Right adnexal cyst Desires bilateral salpingectomy Pelvic pain Post-op Diagnosis Other (Right ovarian cyst, pelvic adhesions) Procedure Performed 1. Robotic assisted laparoscopic right salpingo-oophorectomy 2. Lysis of adhesions. 3. Left salpingectomy Surgeon Inder Alexander MD Deputy Sheriff Generalist Nicolas Anesthesia General Indications Persistant right ovarian/adnexal cyst, pelvic pain. Findings Large right ovarian cyst, no normal ovarian tissue identified, size approximately 8cm, small adhesions of the distal fallopian tube and ovary to periintestinal fat, left corpus luteum cyst Description of Procedure After informed consent was obtained patient was taken to the operating room and adequate general endotracheal anesthesia was administered. She was placed in low lithotomy position. An exam under anesthesia was performed right adnexal mass mobile was palpated. She was prepped and draped in sterile fashion. Altamirano catheter was placed. Attention was turned to the vaginal area speculum was inserted and a toothed tenaculum placed on anterior lip of the cervix and acorn uterine manipulator was placed into the cervix. Attention was turned to the abdomen a horizontal incision was made above the umbilicus with a scalpel. Veress needle was inserted. Confirmation into the abdomen obtained with normal flow of fluid and normal peritoneal pressures. A pneumoperitoneum of 15 mm per mercury was obtained. The robotic port was inserted under laparoscopic visualization. The pelvic organs were visualized. Attention was turned to the left side of the abdomen she was placed in mild Trendelenburg position. An incision was made after 1% lidocaine was injected subcutaneously. And a robotic port was inserted under laparoscopic visualization. Attention was turned to the right side of the abdomen and subcutaneous lidocaine was injected and a robotic port was inserted under laparoscopic visualization. Superior and medial to this an incision was made and the phlebotomist lab assistant port was inserted. She was placed in further Trendelenburg position. The robotic arms were attached. Tension was turned to the surgery console. The left distal fallopian tube was visualized and noted to have adhesions to the tabitha intestinal fat the adhesions were lysed. The distal left fallopian tube was ligated with vessel sealer. The proximal portion of the fallopian tube was further ligated to near the entrance near the uterus. The fallopian tube segments were removed. Through the port. Attention was turned to the right side. The large at ovarian cyst was identified and no normal ovarian tissue was identified. The right distal fallopian tube was connected to the cyst. The infundibulopelvic ligament on the right was ligated with the vessel sealer and the fallopian tube with the cyst was also ligated with the vessel sealer to the level of the proximal portion of the fallopian tube which was approximately 1.5cm from the entrance to the uterus. Suction was used after an incision was made into the cyst because it could not fit into the Endo-Catch bag. the cyst fluid was suction and the cyst was reduced and then the cyst was placed into the Endo-Catch bag which was removed through the phlebotomist lab assistant port. The pelvis was visualized hemostasis was noted. The ports were removed. the pneumoperitoneum was released. The skin incisions were closed Hemostasis was noted with 3 O Vicryl she was extubated in the operating room. Estimated Blood Loss 5 Packing No Pathology Yes (right fallopian tube with right ovary with large ovarian cyst, left fallopian tube) Complications No immediate complications Condition Stable [facility] Billing Surgery - Charge Forward: Surgery Billing
[2022-03-26] MEDS: fentaNYL CITRATE INJ (*CRX) 100 MCG/2 ML VIAL 25 MCG IV PUSH ×3 (09:44→10:09)
[2022-03-26] MEDS: oxyCODONE HCL (*CRX) 5 MG TAB IR PO (10:45)
--- NOTE | 2022-03-26 10:55 | SUR.PHASEII ---
PATIENT STATES SHE DOES NOT WISH TO STAY FOR FURTHER PAIN MANAGEMENT. REQUESTING PAIN PILL AND TO GO HOME. PATIENT AWARE THAT SCRIPT FOR PAIN MEDICINE HAS NOT BEEN TRANSMITTED TO PHARMACY AND THEY WILL RECEIVE A PHONE CALL FROM RN WHEN PAIN MEDICATION HAS BEEN SENT TO PHARMACY.
== END 2022-03-26 11:00 | disposition home or self-care (01) ==
PROVIDERS: PCP Internal Medicine; Visit Provider Obstetrics & Gynecology
PROC: 8E0W4CZ Robotic Assisted Procedure of Trunk Region, Percutaneous Endoscopic Approach (ICD-10-PCS; CPT 49320; principal; 2022-03-26 07:30)
DX: D27.0 Benign neoplasm of right ovary (principal); N83.12 Corpus luteum cyst of left ovary; R10.2 Pelvic and perineal pain; N73.6 Female pelvic peritoneal adhesions (postinfective); Q79.60 Ehlers-Danlos syndrome, unspecified; Z87.891 Personal history of nicotine dependence; F12.90 Cannabis use, unspecified, uncomplicated
CPT/HCPCS: 58661; S2900; 36415; 86850; 86900; 86901; 88305; A9270; J1100; J1885; J2250; J2405; J2704; J2710; J3010; J7030; J7120

== ENCOUNTER 2023-03-25 07:50 | Outpatient (CLI) | payer BC, SELFPAY ==
--- NOTE | ~2023-03-25 | MM_ITS ---
EXAMINATION: MM screening [facility] BI w poncho HISTORY: Screening mammogram, family history of breast cancer in her mother at age 30. TECHNIQUE: Craniocaudal and mediolateral oblique 3-D tomosynthesis images were obtained and synthetic 2-D images were generated. CAD analysis was submitted and interpreted. COMPARISON: 10/27/2019 BREAST PARENCHYMAL COMPOSITION: The breasts are heterogeneously dense, which may obscure small masses . FINDINGS: There are changes of interval reduction mammoplasty. No suspicious mass, calcification, or architectural distortion are identified in either breast to suggest malignancy. There has been no manuel picious interval change. IMPRESSION: 1. No mammographic evidence of malignancy. Changes of interval reduction mammoplasty. 2. Recommend routine screening mammography in one year given family history of breast cancer in her m other at age 30. BI-RADS Category 1: Negative Reviewed, dictated and finalized at location A. IMPRESSION: 1. No mammographic evidence of malignancy. Changes of interval reduction mammop lasty. 2. Recommend routine screening mammography in one year given family history of breast cancer in her mother at age 30. BI-RADS Category 1: Negative
== END 2023-03-25 07:51 | disposition home or self-care (01) ==
LOC: ANHIMG 07:52
PROVIDERS: PCP Family Medicine; Visit Provider Obstetrics & Gynecology
DX: Z12.31 Encounter for screening mammogram for malignant neoplasm of breast (principal); Z80.3 Family history of malignant neoplasm of breast
CPT/HCPCS: 77063; 77067

== ENCOUNTER 2023-04-14 08:00 | Outpatient (NON) | payer BC, SELFPAY | END 2023-04-14 08:01 | disposition home or self-care (01) | LOC: ANHLAB 04-17 13:28 | PROVIDERS: PCP Family Medicine; Visit Provider Nurse Practitioner | DX: D22.72 Melanocytic nevi of left lower limb, including hip (principal) | CPT/HCPCS: 88305 ==

== ENCOUNTER 2024-03-30 09:31 | Outpatient (CLI) | payer BC, SELFPAY ==
--- NOTE | ~2024-03-30 | MM_ITS ---
EXAMINATION: MM screening [facility] BI w poncho HISTORY: Screening TECHNIQUE: Craniocaudal and mediolateral oblique 3-D tomosynthesis images were obtained and synthetic 2-D images were generated. CAD analysis was submitted and interpreted. COMPARISON: Comparison to multiple prior studies sequentially, with oldest reviewed study dated 08/2019. BREAST PARENCHYMAL COMPOSITION: Dense: The breasts are heterogeneously dense, which may obscure small masses FINDINGS: There are changes of bilateral breast reduction surgery. There is no evidence of suspicious mass, calcification, or architectural distortion to suggest malignancy in either breast. There has b een no suspicious interval change. IMPRESSION: 1. No mammographic evidence of malignancy. 2. Recommend routine screening mammography in one year. BI-RADS Category 1: Negative Reviewed, dictated and finalized at location B.
== END 2024-03-30 09:32 | disposition home or self-care (01) ==
LOC: ANHIMG 09:34
PROVIDERS: Visit Provider Obstetrics & Gynecology
DX: Z12.31 Encounter for screening mammogram for malignant neoplasm of breast (principal)
CPT/HCPCS: 77063; 77067

== ENCOUNTER 2024-04-15 03:06 | Day surgery (SDC) | payer OTHER, SELFPAY ==
[2024-04-06 14:55] VITALS: BMI 26.5
--- NOTE | 2024-04-06 15:07 | SUR.PREOP ---
Report to the Outpatient Waiting Room, entrance under the green pavilion located off [facility], at time 0900 on date 04/15/24. Planned Procedure Time: 1100.? Time changes happen often and if your time is changed the preop area will call you the afternoon before. - You and your visitor will be asked to self-screen and do not enter if you have any COVID symptoms. Please call surgeon if you need to reschedule. - A mask is optional within the hospital at this time. Patients may have clear liquids (water, carbonated beverages, clear teas, apple juice) until 3 hours prior to surgery with a maximum of 20 ounces. - No food from midnight until time of surgery and no smoking - Infants may have breast milk until 4 hours before surgery, formula 6 hours prior to surgery. - Children will be allowed to drink immediately following surgery.? If applicable, please bring a bottle or sippy cup to assist with drinking. Juice, water, soda, and popsicles are readily available.? For infants on formula, please bring formula the day of surgery.? Pacifiers are allowed. Take only the following medications with a SIP of water on the morning of surgery: bupropion DO NOT STOP ANY OF YOUR OTHER PRESCRIPTION MEDICATIONS PRIOR TO SURGERY EXCEPT THE FOLLOWING Medications to discontinue per physician ___hold supplements and vitamins 3 days prior Date to take last dose Please no make-up, nail barbadian, hairspray, perfume, deodorant, or body powder the day of surgery.? No jewelry (including any body piercings) or valuables the day of surgery, leave them at home.? Please take a shower or bath the night before, or the morning of, surgery with an antibacterial soap.? Wear comfortable, loose fitting clothing.? Children are encouraged to wear pajamas. - Jewelry must be removed prior to entering the operating room.? Rings and piercings that are not removed may be cut off. - The hospital will not accept responsibility for valuables.? - Please leave all valuables, including medications, at home the day of surgery. If you are going home after surgery, a licensed driver education instructor must drive you home.? - NO public transportation without another adult if you receive anesthesia. - We recommend that an adult stay with you for 24 hours following discharge. - We also recommend that you do not drive, make important decision, drink alcoholic beverages, or take any drugs that were not prescribed by your health care provider for at least 24 hours after your discharge time. For Pediatric surgeries, we recommend two adults accompany the child home. Follow any additional instructions given to you from your surgeon. Telephone instructions given to ___patient__and asked if any additional questions and then verbalized understanding. Patient advised to call surgeon office or pre surgery nurse liaison [phone] if any additional questions.
[2024-04-15] VITALS (8 sets, daily range): BP systolic 100–131; BP diastolic 47–75; PULSE 96–117; RESP 12–18; TEMP 36.5–36.8; O2SAT 94–100; BMI 26.2
[2024-04-15] MEDS: LACTATED RINGERS 1,000 ML 30 ML IV CONT ×2 (09:35→12:37)
--- NOTE | 2024-04-15 09:39 | WPDHPUPDATE1 ---
History and Physical Update Update Date/Time: 04/15/24 09:39 History and Physical has been reviewed, including an updated exam of the patient. There are NO changes in the patient's condition. Risks, benefits, and alternatives have been discussed and questions answered. Patient agrees to proceed with procedure.
[2024-04-15 09:51] LABS: Urine Cotinine NEGATIVE
--- NOTE | 2024-04-15 09:55 | P.OP_ITS ---
Procedure Note - Detailed Date of Procedure 04/15/24 Pre-op Diagnosis micromastia,breast ptosis Post-op Diagnosis Same Procedure Performed Bilateral augmentation mammaplasty with revision mastopexy Surgeon Chris Pearce MD Anesthesia General Findings No translocation of NAC Left NAC revision superior medial / inferior lateral scars. Revision of nipple to IMF distance bilateral. Bilateral dual plane augmentation 405cc Right: REF# [id number] SN [id number] Left: REF# [id number] SN [id number] Description of Procedure She is here today for bilateral breast augmentation and mastopexy revision. Previously and again today the risks, benefits, alternatives were discussed in extensive detail. I wanted her to be very realistic about the risks involved as well as expectations. We discussed aftercare and what to monitor for. Made sure answered all of her questions to her satisfaction today and consent was obtained. Marked in the preoperative holding area with their verification. The patient was taken to the operating room placed supine on the operating table. Anesthesia was provided by anesthesiology. A surgical time-out was taken. We cleansed the skin and 1% lidocaine and 0.25% Marcaine with epinephrine was used anesthetize as a field block. She was prepped and draped in a standard sterile fashion. Tegaderm nipple Payton were placed. A 15 blade used to make an incision just superior to the inframammary fold. Dissection was continued until the chest wall as identified. I incised the pectoralis major along its inferior border and completely released the inferior border leaving the medial border intact. I created a subpectoral pocket in the appropriate dimensions based on our preoperative planning for the implant. I then copiously irrigated with saline solution and verified a strict hemostasis. Next the use a triple antibiotic and Betadine containing solution to irrigate the pocket. I washed my gloves with the triple antibiotic and Betadine solution. We washed the implant immediately upon opening it with this solution and only opened it when we needed it. I used implant funnel and no-touch technique. The implant was introduced into the pocket using the funnel. Having verified positioning of the implant this was closed using 2-0 PDS. I tailor tacked the breast into position. Placed her in a sitting position. Verified markings based on preoperative planning as well as intraoperative observations and measurements in full agreement. She was placed supine. I de- epithelialized the left NAC revision. I then excised the excess IMF escess as well as vertical excess. I closed along the IMF and vertical scar with 2-0 PDS. I closed around the areola and vertical with 3-0 Monocryl. 3-0 Stratafix along the IMF. I finally closed everything with running subcuticular 4-0 Monocryl and tissue glue. Fluffs and surgical bra were placed. Estimated Blood Loss 30 Drains No Packing No Pathology None sent Complications No immediate complications Condition Stable Disposition PACU
--- NOTE | 2024-04-15 10:06 | WPDANESEPPF ---
Anes - Initial Pre Proc Eval Procedure: Operation Date: 04/15/24 11:00 Proposed Procedures p Bilateral Breast Augmentation, - Chris Pearce MD s Revision Bilateral Breast Mastopexy - Chris Pearce MD Date/Time: 04/15/24 10:06 Surgeon: Chris Pearce MD Pre Op Diagnosis: micromastia,breast ptosis Patient Data Age: 38 Gender: F Height: 1.6 m Weight: 67.25 kg Last Vital Signs Temp 36.8 C 04/15/24 09:20 Pulse 96 04/15/24 09:20 Resp 16 04/15/24 09:20 BP 108/68 04/15/24 09:20 Pulse Ox 100 04/15/24 09:20 O2 Del Method Room Air 04/15/24 09:20 Allergies Allergy/AdvReac Type Severity Reaction Status Date / Time amoxicillin Allergy Unknown Rash Verified 04/15/24 09:48 cinnamon AdvReac Unknown Itching Verified 04/15/24 09:48 Home Medications Medication Instructions Recorded Confirmed Type alprazolam 1 mg tablet 1 mg PO HS PRN Anxiety 03/18/22 04/15/24 History bupropion HCl 150 mg 24 hr tablet, 150 mg PO QAM #90 tabs 03/29/24 04/15/24 Rx extended release (Wellbutrin XL) Vitamin D3 1 cap PO DAILY 04/06/24 04/15/24 History biotin 1 mg tablet 1 mg PO DAILY 04/06/24 04/15/24 History lactobacillus combination no.4 3 3,000 mmu cells PO DAILY 04/06/24 04/15/24 History billion cell capsule (Probiotic) omega-3 fatty acids 2 cap PO DAILY 04/06/24 04/15/24 History Laboratory Tests 04/15/24 09:33 Cotinine Negative Patient hx anesthesia problems: none Family hx anesthesia problems: none Results Review: All pre-operative results and documents have been reviewed as part of the pre-operative evaluation. [facility] Past Medical History Medical History ASCUS of cervix with negative high risk HPV BMI 25.0-25.9,adult Congenital hip dysplasia Prudence-Danlos syndrome Gallstones Sacroiliac joint disease Vaginal delivery x 2 Surgical History Surgical History History of breast lift History of endometrial ablation History of right oophorectomy History of tubal ligation Hx of unilateral salpingectomy S/P abdominoplasty S/P cholecystectomy Family History Family History Father Hypertension Mother Hypertension Family history of malignant neoplasm of breast in first degree relative Skin cancer Grandparent Family history of elevated blood lipids Carcinoma of colon Family history of coronary artery disease Diabetes mellitus Skin cancer Grandma both sides Grandpa dads side Other Family history of allergic disorder Social History Social History Smoking packs per day: 0.5 Smoking cigarettes per day: 10.0 Years smoked: 17 Smoking pack-years: 8.50 Smoking status: Former smoker Tobacco type: cigarettes and e-cigarettes/vaping Second hand tobacco smoke exposure: No Smoking end date: 07/27/11 Alcohol intake: never Alcohol use details: RARE Substance use: current Substance use type: marijuana Other substance usage details: only uses topical form at this time Lack of Transportation: No Lack of Food: Never True Current Housing: I Have Housing Concerned About Future Housing: No Difficulty Paying Gas/Electric Bills: No Difficulty Paying for Meds: No Currently Unemployed: No Living arrangements: with family Occupation/Education: occupation Gender identity (if verbalized by the patient): Female Sexual Orientation (if Verbalized by the Patient): Straight or Heterosexual Spiritual care concerns: No Anes - Eval Final PreProcedure Day of Procedure 04/15/24 10:06 Patient weight: normal Heart: regular rate and rhythm Lungs: clear to auscultation Airway: Mallampati scale class II Neurological: alert and oriented Last oral intake: >/= 8 hours ASA classification: II Em
[2024-04-15] MEDS: TRANEXAMIC ACID 1,000MG/ISO100 1,000 MG/100 ML BAG 200 MG IVPB (10:10)
[2024-04-15] MEDS: ceFAZolin 2 GM/D5W 50 ML 2 GM/50 ML BAG IVPB (10:10)
[2024-04-15] MEDS: NACL 0.9% IRRIG POUR BOTTLE 900 ML, GENTAMICIN SULFATE INJ 160 MG, CLINDAMYCIN PHOS INJ... IRRIGATION (10:34)
[2024-04-15] MEDS: LACTATED RINGERS IRRIG 1,000 ML, LIDOCAINE HCL 1% LOCAL INJ 50 ML, EPINEPHrine HCL INJ ... INFILTRATE (10:35)
[2024-04-15] MEDS: BUPivacaine HCL 0.25% PF 30 ML VIAL INFILTRATE (10:36)
[2024-04-15 10:37] LABS: BEDSIDEPREGUCG Negative (Negative)
[2024-04-15] MEDS: LIDO 1%/EPINEPHRINE 1:100,000 20 ML VIAL 30 ML INFILTRATE (10:37)
[2024-04-15] MEDS: fentaNYL CITRATE INJ (*CRX) 100 MCG/2 ML VIAL 25 MCG IV PUSH ×4 (13:05→13:19)
[2024-04-15] MEDS: diphenhydrAMINE HCl INJ 50 MG/ML VIAL 25 MG IV PUSH (13:44)
[2024-04-15] MEDS: ONDANSETRON INJ 4 MG/2 ML VIAL IV PUSH (13:44)
[2024-04-15] MEDS: oxyCODONE HCL (*CRX) 5 MG TAB IR PO (13:45)
== END 2024-04-15 14:35 | disposition home or self-care (01) ==
PROVIDERS: Visit Provider Surgery Plastic and Reconstructive Surgery
PROC: (CPT 19325; principal; 2024-04-15 11:00)
PROC: (CPT 19316; 2024-04-15 11:00)
DX: Z41.1 Encounter for cosmetic surgery (principal); N64.82 Hypoplasia of breast; N64.81 Ptosis of breast; Q79.60 Ehlers-Danlos syndrome, unspecified; M53.3 Sacrococcygeal disorders, not elsewhere classified; F12.90 Cannabis use, unspecified, uncomplicated; Z79.891 Long term (current) use of opiate analgesic; Z98.890 Other specified postprocedural states; Z98.51 Tubal ligation status; Z90.49 Acquired absence of other specified parts of digestive tract; Z87.891 Personal history of nicotine dependence; Z80.3 Family history of malignant neoplasm of breast; Z80.0 Family history of malignant neoplasm of digestive organs; Z84.0 Family history of diseases of the skin and subcutaneous tissue; Z82.49 Family history of ischemic heart disease and other diseases of the circulatory system
CPT/HCPCS: 19325; 19316; 80307; A9270; J0171; J0690; J1100; J1170; J1200; J1580; J2250; J2405; J2704; J3010; J7120